=== PATIENT | female | born 1990 | race African-American/Black ===

== ENCOUNTER 2018-02-04 17:51 | Emergency (ER) | payer OTHER ==
[~2018-02-04] VITALS: Ht 167.6 cm; Wt 136.1 kg
[2018-02-04 20:37] VITALS: BP 106/76
== END 2018-02-04 20:38 | disposition home or self-care (01) ==
LOC: ER 17:51
DX: O9A.213 Injury, poisoning and certain other consequences of external causes complicating pregnancy, third trimester (principal); R10.33 Periumbilical pain; Z88.0 Allergy status to penicillin; Z3A.30 30 weeks gestation of pregnancy; V89.2XXA Person injured in unspecified motor-vehicle accident, traffic, initial encounter; Y93.I9 Activity, other involving external motion; Y92.89 Other specified places as the place of occurrence of the external cause; Y99.8 Other external cause status